=== PATIENT | female | born 2005 | race Hispanic/Latino ===

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

== ENCOUNTER 2024-04-05 13:14 | Emergency (ER) | payer OTHER ==
[~2024-04-05] VITALS: Ht 160 cm; Wt 62.3 kg
[~2024-04-05 13:14] MED LIST: MAALSUS19 PO; ONDA-282 PO
[2024-04-05] MEDS ORDERED: MULTTAB20 PO (13:31)
[2024-04-05 16:37] VITALS: BP 106/54; TEMP 99; O2SAT 99
== END 2024-04-05 16:41 | disposition home or self-care (01) ==
LOC: M ED 13:14
DX: O9A.212 Injury, poisoning and certain other consequences of external causes complicating pregnancy, second trimester (principal); S99.922A Unspecified injury of left foot, initial encounter; W01.10XA Fall on same level from slipping, tripping and stumbling with subsequent striking against unspecified object, initial encounter; Y92.009 Unspecified place in unspecified non-institutional (private) residence as the place of occurrence of the external cause; Y93.9 Activity, unspecified; Y99.9 Unspecified external cause status; Z3A.15 15 weeks gestation of pregnancy

== ENCOUNTER 2024-05-23 16:45 | Outpatient (CLI) | payer OTHER ==
[~2024-05-23] VITALS: Ht 160 cm; Wt 67.8 kg
[~2024-05-23 16:45] MED LIST changes: +MULTTAB20 PO
[2024-05-23] MEDS ORDERED: HOME MED LIST COMPLETE! XX SCH (18:30)
[2024-05-23] MEDS: CEPHALEXIN 500 MG CAP PO ONE (18:41)
[2024-05-23] MEDS ORDERED: CEPH500C PO (18:49)
== END 2024-05-23 18:55 | disposition home or self-care (01) ==
LOC: M LDO 16:45
PROVIDERS: ATTEND Obstetrics & Gynecology
DX: O36.8120 Decreased fetal movements, second trimester, not applicable or unspecified (principal); Z3A.22 22 weeks gestation of pregnancy; O23.42 Unspecified infection of urinary tract in pregnancy, second trimester
CPT/HCPCS: 59025; 81001; 87086; G0463

== ENCOUNTER 2024-06-15 14:41 | Emergency (ER) | payer OTHER ==
[~2024-06-15] VITALS: Ht 160 cm; Wt 69.8 kg
[~2024-06-15 14:41] MED LIST changes: +CEPH500C PO
[2024-06-15] MEDS ORDERED: CYCL-707 (15:07)
[2024-06-15 16:45] LABS: BASO % 0.2 % (0.0-1.0); EOS # 0.1 10^3/uL (0.0-0.5); HEMATOCRIT 34.6 % (36.0-47.0); HEMOGLOBIN 11.3 g/dl (12.0-15.5); LYMPH # 1.6 10^3/uL (1.5-5.0); LYMPH % 10.6 % (24.0-44.0); MEAN CORPUSCULAR HEMOGLOBIN 28.7 pg (27.0-33.0); MEAN CORPUSCULAR HGB CONC 32.7 g/dl (32.0-36.5); MEAN CORPUSCULAR VOLUME 87.8 fl (80.0-96.0); MONO % 6.8 % (2.0-8.0); NEUTROPHILS # 11.8 10^3/uL (1.5-8.5); PLATELET COUNT, AUTOMATED 352 10^3/uL (150-450); RED BLOOD COUNT 3.94 10^6/uL (4.00-5.40); WHITE BLOOD COUNT 14.7 10^3/uL (4.0-10.0)
[2024-06-15] MEDS: ONDANSETRON 4MG 2ML VIAL IV ONE (17:01)
[2024-06-15] MEDS: NS 1,000 ML IV ONE (17:02)
[2024-06-15 17:14] LABS: ALKALINE PHOSPHATASE 105 U/L (46-116); ALT/SGPT 23 U/L (7.0-40); AST/SGOT 14 U/L (<34); BILIRUBIN,DIRECT < 0.1 MG/DL (<0.4); BILIRUBIN,TOTAL 0.3 MG/DL (0.3-1.2); BLOOD UREA NITROGEN 11 MG/DL (9-23); CALCIUM LEVEL 8.9 MG/DL (8.5-10.1); CARBON DIOXIDE LEVEL 25 MMOL/L (20-31); CHLORIDE LEVEL 106 MMOL/L (98-107); CREATININE FOR GFR 0.52 MG/DL (0.55-1.30); GLUCOSE, FASTING 74 MG/DL (60-100); POTASSIUM SERUM 4.3 MMOL/L (3.5-5.1); SODIUM LEVEL 135 MMOL/L (136-145); TOTAL PROTEIN 6.6 G/DL (5.7-8.2)
[2024-06-15 17:15] LABS: LIPASE 31 U/L (12-53)
[2024-06-15] MEDS ORDERED: ONDA-282 PO (19:23)
[2024-06-15 19:49] VITALS: BP 102/58; TEMP 97.9; O2SAT 100
== END 2024-06-15 19:51 | disposition home or self-care (01) ==
LOC: M ED 14:41
DX: O21.9 Vomiting of pregnancy, unspecified (principal); O99.612 Diseases of the digestive system complicating pregnancy, second trimester; Z3A.25 25 weeks gestation of pregnancy; Z87.448 Personal history of other diseases of urinary system; Z79.899 Other long term (current) drug therapy
CPT/HCPCS: 76815; 80048; 80076; 81001; 83690; 85025; 87086; 96361; 96374; 99284; J2405

== ENCOUNTER 2024-07-22 09:31 | Outpatient (CLI) | payer OTHER ==
[~2024-07-22] VITALS: Ht 160 cm; Wt 74.9 kg
[~2024-07-22 09:31] MED LIST changes: +CYCL-707
[2024-07-22] MEDS ORDERED: TUMS750C22 PO (09:51)
[2024-07-22] MEDS ORDERED: B-12100010 PO (09:51)
[2024-07-22] MEDS ORDERED: HOME MED LIST COMPLETE! XX SCH (09:55)
[2024-07-22 09:57] VITALS: BP 109/63
[2024-07-22] MEDS: LACTATED RINGER'S 1000 ML IV ONE (12:04)
[2024-07-22 12:52] VITALS: BP 121/61
== END 2024-07-22 13:20 | disposition home or self-care (01) ==
LOC: M LDO 09:31
PROVIDERS: ATTEND Advanced Practice Midwife
DX: O36.8130 Decreased fetal movements, third trimester, not applicable or unspecified (principal); O26.893 Other specified pregnancy related conditions, third trimester; R10.2 Pelvic and perineal pain; Z3A.31 31 weeks gestation of pregnancy
CPT/HCPCS: 59025; 76811; 76819; 76820; G0463

== ENCOUNTER 2024-07-30 10:20 | Outpatient (CLI) | payer OTHER ==
[~2024-07-30] VITALS: Ht 160 cm; Wt 79.1 kg
[~2024-07-30 10:20] MED LIST changes: +B-12100010 PO; +TUMS750C22 PO
[2024-07-30 10:43] VITALS: BP 112/65
[2024-07-30] MEDS ORDERED: IRON1TAB2 PO (10:48)
[2024-07-30] MEDS ORDERED: GNP250TA9 PO (10:50)
[2024-07-30] MEDS: ACETAMINOPHEN 500 MG TAB PO ONE (11:28)
[2024-07-30] MEDS: CYCLOBENZAPRINE 10MG TABLET PO ONE (11:35)
[2024-07-30 13:21] VITALS: BP 112/68
[2024-07-30 15:59] VITALS: BP 118/60
== END 2024-07-30 16:05 | disposition home or self-care (01) ==
LOC: M LDO 10:20
PROVIDERS: ATTEND Specialist
DX: O26.893 Other specified pregnancy related conditions, third trimester (principal); M54.50 Low back pain, unspecified; Z3A.32 32 weeks gestation of pregnancy
CPT/HCPCS: 59025; 81001; 87086; G0463

== ENCOUNTER 2025-01-28 17:38 | Emergency (ER) | payer OTHER ==
[~2025-01-28] VITALS: Ht 160 cm; Wt 63.5 kg
[~2025-01-28 17:38] MED LIST changes: +GNP250TA9 PO; +IRON1TAB2 PO
[2025-01-28 21:24] VITALS: BP 129/69; TEMP 98; O2SAT 97
== END 2025-01-28 23:02 | disposition home or self-care (01) ==
LOC: EDBD 17:38 → M ED 17:38
DX: O99.341 Other mental disorders complicating pregnancy, first trimester (principal); F43.0 Acute stress reaction; Z3A.01 Less than 8 weeks gestation of pregnancy

== ENCOUNTER 2025-02-10 09:16 | Emergency (ER) | payer OTHER ==
[~2025-02-10] VITALS: Ht 160 cm; Wt 68.8 kg
[2025-02-10] MEDS ORDERED: UNIS25TA3 PO (11:32)
[2025-02-10] MEDS ORDERED: VITA100T29 PO (11:32)
[2025-02-10] MEDS: ONDANSETRON 4MG ORAL DISINTEGRATING TAB PO ONE (11:52)
[2025-02-10 12:00] LABS: BASO % 0.1 % (0.0-1.0); EOS # 0.1 10^3/uL (0.0-0.5); EOS % 0.8 % (0.0-3.0); HEMATOCRIT 39.3 % (36.0-47.0); HEMOGLOBIN 12.8 g/dl (12.0-15.5); LYMPH # 1.9 10^3/uL (1.5-5.0); LYMPH % 14.1 % (24.0-44.0); MEAN CORPUSCULAR HGB CONC 32.6 g/dl (32.0-36.5); MONO # 0.7 10^3/uL (0.0-0.8); MONO % 5.2 % (2.0-8.0); NEUTROPHILS # 10.6 10^3/uL (1.5-8.5); NEUTROPHILS % 79.5 % (36.0-66.0); PLATELET COUNT, AUTOMATED 423 10^3/uL (150-450); RED BLOOD COUNT 4.57 10^6/uL (4.00-5.40); WHITE BLOOD COUNT 13.4 10^3/uL (4.0-10.0)
[2025-02-10 12:04] LABS: KETONE, URINE AUTO RFX 2+ mg/dL (NEGATIVE); MUCUS, URINE RFX MODERATE (NEGATIVE); NITRITE, URINE AUTO RFX NEGATIVE (NEGATIVE); RBC, URINE AUTO RFX 1 /HPF (0-3); SQUAM EPITHELIAL CELL UR AURFX 5 /HPF (0-6); WBC, URINE AUTO RFX 3 /HPF (0-3)
[2025-02-10 12:16] LABS: LEUKOCYTE ESTERASE UR AUTO RFX TRACE (NEGATIVE)
[2025-02-10 12:30] LABS: BLOOD UREA NITROGEN 11 MG/DL (9-23); CALCIUM LEVEL 9.2 MG/DL (8.5-10.1); CARBON DIOXIDE LEVEL 26 MMOL/L (20-31); CHLORIDE LEVEL 103 MMOL/L (98-107); CREATININE FOR GFR 0.51 MG/DL (0.55-1.30); GLOMERULAR FILTRATION RATE > 90.0 (>60); GLUCOSE, FASTING 86 MG/DL (60-100); POTASSIUM SERUM 3.7 MMOL/L (3.5-5.1); SODIUM LEVEL 137 MMOL/L (136-145)
[2025-02-10] MEDS: METOCLOPRAMIDE 10MG TAB PO ONE (12:33)
[2025-02-10 12:46] LABS: HCG, SERUM QUANTITATIVE 41337.4 MIU/ML (<4.2)
[2025-02-10] MEDS ORDERED: ONDA-282 PO (13:20)
[2025-02-10] MEDS ORDERED: REGL10TA6 PO (13:20)
[2025-02-10 13:25] VITALS: BP 117/58; TEMP 98.3; O2SAT 100
== END 2025-02-10 13:25 | disposition home or self-care (01) ==
LOC: M ED 09:16
DX: O21.9 Vomiting of pregnancy, unspecified (principal); Z79.899 Other long term (current) drug therapy

== ENCOUNTER 2025-03-09 12:35 | Emergency (ER) | payer OTHER ==
[~2025-03-09] VITALS: Ht 160 cm; Wt 68.1 kg
[~2025-03-09 12:35] MED LIST changes: +REGL10TA6 PO; +UNIS25TA3 PO; +VITA100T29 PO
[2025-03-09 13:26] LABS: BASO % 0.1 % (0.0-1.0); EOS # 0.2 10^3/uL (0.0-0.5); EOS % 1.4 % (0.0-3.0); HEMATOCRIT 37.4 % (36.0-47.0); HEMOGLOBIN 12.5 g/dl (12.0-15.5); LYMPH # 1.6 10^3/uL (1.5-5.0); LYMPH % 11.6 % (24.0-44.0); MEAN CORPUSCULAR HEMOGLOBIN 28.4 pg (27.0-33.0); MEAN CORPUSCULAR HGB CONC 33.4 g/dl (32.0-36.5); MONO # 0.8 10^3/uL (0.0-0.8); MONO % 5.7 % (2.0-8.0); NEUTROPHILS # 10.9 10^3/uL (1.5-8.5); PLATELET COUNT, AUTOMATED 394 10^3/uL (150-450); WHITE BLOOD COUNT 13.5 10^3/uL (4.0-10.0)
[2025-03-09 13:58] LABS: BLOOD UREA NITROGEN 13 MG/DL (9-23); CALCIUM LEVEL 9.3 MG/DL (8.5-10.1); CARBON DIOXIDE LEVEL 25 MMOL/L (20-31); CHLORIDE LEVEL 102 MMOL/L (98-107); CREATININE FOR GFR 0.56 MG/DL (0.55-1.30); GLOMERULAR FILTRATION RATE > 90.0 (>60); GLUCOSE, FASTING 81 MG/DL (60-100); POTASSIUM SERUM 4.3 MMOL/L (3.5-5.1); SODIUM LEVEL 137 MMOL/L (136-145)
[2025-03-09 14:14] LABS: HCG, SERUM QUANTITATIVE 83931.2 MIU/ML (<4.2)
[2025-03-09 15:15] VITALS: BP 105/65; TEMP 97.9; O2SAT 100
[2025-03-09] MEDS ORDERED: PROM12.54 PR (15:36)
== END 2025-03-09 15:46 | disposition home or self-care (01) ==
LOC: M ED 12:35
DX: O21.9 Vomiting of pregnancy, unspecified (principal); Z79.899 Other long term (current) drug therapy

== ENCOUNTER 2025-06-10 15:56 | Emergency (ER) | payer OTHER ==
[~2025-06-10 15:56] MED LIST changes: +PROM12.54 PR
[2025-06-10] MEDS ORDERED: ACET-897 PO (16:35)
== END 2025-06-10 16:00 | disposition admitted as inpatient to this hospital (09) ==
LOC: M ED 15:56
DX: Z53.21 Procedure and treatment not carried out due to patient leaving prior to being seen by health care provider (principal)

== ENCOUNTER 2025-06-10 16:06 | Outpatient (CLI) | payer OTHER ==
[~2025-06-10] VITALS: Ht 160 cm; Wt 74.3 kg
[2025-06-10 16:28] VITALS: BP 113/70
[2025-06-10] MEDS ORDERED: ACET-897 PO (16:35)
[2025-06-10] MEDS ORDERED: HOME MED LIST COMPLETE! XX SCH (16:40)
[2025-06-10] MEDS: ACETAMINOPHEN 500 MG TAB PO ONE (16:58)
== END 2025-06-10 17:55 | disposition home or self-care (01) ==
LOC: M LDO 16:06
PROVIDERS: ATTEND Obstetrics & Gynecology
DX: O26.892 Other specified pregnancy related conditions, second trimester (principal); R51.9 Headache, unspecified; Z3A.24 24 weeks gestation of pregnancy
CPT/HCPCS: 59025; G0463

== ENCOUNTER 2025-07-17 23:03 | Outpatient (CLI) | payer OTHER ==
[~2025-07-17] VITALS: Ht 160 cm; Wt 74.0 kg
[~2025-07-17 23:03] MED LIST changes: +ACET-897 PO
[2025-07-17] MEDS: ONDANSETRON 4MG 2ML VIAL IV ONE (23:58)
[2025-07-17] MEDS: LR 1,000 ML IV ONE (23:59)
[2025-07-18 00:11] VITALS: BP 127/68; O2SAT 99
[2025-07-18] MEDS ORDERED: ONDA-282 PO (01:19)
== END 2025-07-18 01:28 | disposition home or self-care (01) ==
LOC: M LDO 23:03
PROVIDERS: ATTEND Obstetrics & Gynecology
DX: O21.8 Other vomiting complicating pregnancy (principal); O26.893 Other specified pregnancy related conditions, third trimester; R25.2 Cramp and spasm; Z3A.29 29 weeks gestation of pregnancy
CPT/HCPCS: 59025; 96374; G0463; J2405

== ENCOUNTER 2025-09-01 21:27 | Emergency (ER) | payer OTHER | END 2025-09-01 21:29 | disposition admitted as inpatient to this hospital (09) | LOC: M ED 21:27 | DX: Z53.21 Procedure and treatment not carried out due to patient leaving prior to being seen by health care provider (principal) ==

== ENCOUNTER 2025-09-01 21:32 | Outpatient (CLI) | payer OTHER ==
[~2025-09-01] VITALS: Ht 160 cm; Wt 80.7 kg
[2025-09-01 21:43] VITALS: BP 129/73
[2025-09-01 21:44] VITALS: O2SAT 16
[2025-09-01] MEDS ORDERED: HOME MED LIST COMPLETE! XX SCH (21:50)
[2025-09-01] MEDS: LR 500 ML in IV 1 EA IV ONE (22:18)
[2025-09-01] MEDS: ONDANSETRON 4MG/2ML VIAL IV PRN (22:27)
[2025-09-01 22:38] LABS: PLATELET COUNT, AUTOMATED 373 10^3/uL (150-450)
[2025-09-01 23:31] LABS: HIV 1&2 SCREEN NEGATIVE (NEGATIVE)
[2025-09-01 23:39] LABS: HEPATITIS C VIRUS ABY INDEX < 0.02 INDEX (<0.8)
[2025-09-02 00:22] VITALS: BP 103/52; O2SAT 16
== END 2025-09-02 01:50 | disposition home or self-care (01) ==
LOC: M LDO 21:32
PROVIDERS: ATTEND Advanced Practice Midwife
DX: O26.893 Other specified pregnancy related conditions, third trimester (principal); R10.32 Left lower quadrant pain; Z87.51 Personal history of pre-term labor; Z3A.36 36 weeks gestation of pregnancy
CPT/HCPCS: 59025; 85027; 86780; 86803; 86850; 86900; 86901; 87340; 87389; 96374; G0463; J2405

== ENCOUNTER 2025-10-09 15:28 | Emergency (ER) | payer OTHER ==
[~2025-10-09] VITALS: Ht 160 cm; Wt 69.7 kg
[2025-10-09 15:32] VITALS: BP 108/58; TEMP 97.6; O2SAT 98
== END 2025-10-09 18:54 | disposition left against medical advice (07) ==
LOC: EDBD 15:28 → M ED 15:28
DX: Z53.21 Procedure and treatment not carried out due to patient leaving prior to being seen by health care provider (principal)